=== PATIENT | male | born 1930 | race Caucasian/White ===

== ENCOUNTER 2017-11-15 20:48 | Observation (INO) | payer OTHER ==
--- NOTE | 2017-11-15 21:43 | PDOC ---
History of Present Illness - General History Source: Patient, Family Exam Limitations: No Limitations - History of Present Illness Initial Comments: 11/15/17 23:28 Patient is a 86 year old male with a significant past medical history of Thyroid complication, enlarged prostate who presents to the ED with complaints of dizziness that began just prior to arrival. Patient reports walking at home when he suddenly began to experience slight dizziness. As per patient's daughter , patient called her concerning his dizziness who then called EMS to be brought to the ED for further evaluation. She reports patient was able to walk down his steps to meet EMS outside his home when she arrived. Patient reports experiencing associated symptoms of doubled vision, and jaw pain. As per patient's son, he has been non compliant with his thyroid medication for x3 days. Denies chest pain, Sob. Denies nausea, vomiting. Denies loss of consciousness, head trauma. Denies dysuria, hematuria, constipation, diarrhea. Denies fevers, chills. Denies any other symptoms. Allergies: None Social History: Lives alone. No smoking. No alcohol. No illicit drugs. Surgical History: None PMD: Dr. Dunn, Dr. Esquivel <Avtar Stuart - Last Filed: 11/16/17 00:14> <Annalise Choe - Last Filed: 11/16/17 06:33> - General Chief Complaint: Lightheaded Stated Complaint: DIZZINESS/WEAKNESS Time Seen by Provider: 11/15/17 21:40 Past History <Avtar Stuart - Last Filed: 11/16/17 00:14> - Past Medical History Cancer: Yes (PROSTATE) Thyroid Disease: Yes - Surgical History Appendectomy: Yes - Immunization History Immunization Up to Date: Yes - Suicide/Smoking/Psychosocial Hx Smoking Status: No Smoking History: Never smoked Have you smoked in the past 12 months: No Number of Cigarettes Smoked Daily: 0 Information on smoking cessation initiated: No Hx Alcohol Use: No Drug/Substance Use Hx: No Substance Use Type: None <Annalise Choe - Last Filed: 11/16/17 06:33> - Past Medical History Allergies/Adverse Reactions: Allergies Allergy/AdvReac Type Severity Reaction Status Date / Time No Known Allergies Allergy Verified 11/15/17 21:30 Home Medications: Ambulatory Orders Levothyroxine [Synthroid -] 125 mcg PO DAILY 11/16/17 Review of Systems - Review of Systems Able to Perform ROS?: Yes Comments:: 11/15/17 23:28 GENERAL/CONSTITUTIONAL: No fever or chills. No weakness. HEAD, EYES, EARS, NOSE AND THROAT: +Jaw pain. No change in vision. No ear pain or discharge. No sore throat. CARDIOVASCULAR: No chest pain or shortness of breath. RESPIRATORY: No cough, wheezing, or hemoptysis. GASTROINTESTINAL: No nausea, vomiting, diarrhea or constipation. GENITOURINARY: No dysuria, frequency, or change in urination. MUSCULOSKELETAL: No joint or muscle swelling or pain. No neck or back pain. SKIN: No rash NEUROLOGIC: +Doubled vision. +Dizziness. No headache, vertigo, loss of consciousness, or change in strength/sensation. ENDOCRINE: No increased thirst. No abnormal weight change. HEMATOLOGIC/LYMPHATIC: No anemia, easy bleeding, or history of blood clots. ALLERGIC/IMMUNOLOGIC: No hives or skin allergy. <Avtar Stuart - Last Filed: 11/16/17 00:14> *Physical Exam - Vital Signs Last Vital Signs Temp Pulse Resp BP Pulse Ox 97.9 F 66 18 165/88 97 11/15/17 21:27 11/15/17 21:27 11/15/17 21:27 11/15/17 21:27 11/15/17 21:27 - Physical Exam Comments: 11/15/17 23:28 GENERAL: Awake, alert, and fully oriented, in no acute distress HEAD: No signs of trauma EYES: PERRLA, EOMI, sclera anicteric, conjunctiva clear ENT: Auricles normal inspection, hearing grossly normal, nares patent, oropharynx clear without exudates. Moist mucosa NECK: Normal ROM, supple, no lymphadenopathy, JVD, or masses LUNGS: Breath sounds equal, clear to auscultation bilaterally. No wheezes, and no crackles HEART: Regular rate and rhythm, normal S1 and S2, no murmurs, rubs or gallops ABDOMEN: Soft, nontender, normoactive bowel sounds. No guarding, no rebound. No masses EXTREMITIES: Normal range of motion, no edema. No clubbing or cyanosis. No cords, erythema, or tenderness NEUROLOGICAL: Cranial nerves II through XII grossly intact. Normal speech, normal gait SKIN: Warm, Dry, normal turgor, no rashes or lesions noted. <Avtar Stuart - Last Filed: 11/16/17 00:14> - Vital Signs Last Vital Signs Temp Pulse Resp BP Pulse Ox 97.9 F 66 18 165/88 97 11/15/17 21:27 11/15/17 21:27 11/15/17 21:27 11/15/17 21:27 11/15/17 21:27 <Annalise Choe - Last Filed: 11/16/17 06:33> Heart Score/ECG Review - ECG Intrepretation Comment:: 11/16/17 00:14 Compleeted @22:52:26 Sinus bradycardia with 1st degree AV block Right bundle branch block Abnormal ECG Vent. rate 52 bpm IN interval 216 ms QRS duration 146 ms <Avtar Stuart - Last Filed: 11/16/17 00:14> ED Treatment Course - LABORATORY CBC & Chemistry Diagram: 11/15/17 23:00 11/15/17 23:00 - ADDITIONAL ORDERS Additional order review: 11/15/17 23:00 RBC 4.69 MCV 89.1 MCHC 34.5 RDW 14.0 MPV 8.9 Neutrophils % 58.3 D Lymphocytes % 21.6 D Monocytes % 10.3 H Eosinophils % 8.7 H D Basophils % 1.1 <Avtar Stuart - Last Filed: 11/16/17 00:14> - LABORATORY CBC & Chemistry Diagram: 11/15/17 23:00 11/15/17 23:00 <Annalise Choe - Last Filed: 11/16/17 06:33> Medical Decision Making - Medical Decision Making 11/16/17 06:25 Pt comes with double vision and dizziness. He has not been taking his thyroid meds x 3 days. TSH is elevated at 10. 11/16/17 06:26 Pt has normal labs otherwise. Pt also has old changes on his head CT scan. Pt will be admitted to [facility] for neuro consult and opthalmology consult and repeat MRI, as needed. <Annalise Choe - Last Filed: 11/16/17 06:33> *DC/Admit/Observation/Transfer - Attestations Scribe Attestion: 11/15/17 23:28 Documentation prepared by Avtar Narciso, acting as claim review medical director for Annalise Choe MD/DO. <Avtar Stuart - Last Filed: 11/16/17 00:14> - Discharge Dispostion Decision to Admit order: Yes <Annalise Choe - Last Filed: 11/16/17 06:33> Diagnosis at time of Disposition: Diplopia, Dizziness, Thyroid disease - Discharge Dispostion Condition at time of disposition: Guarded
--- NOTE | 2017-11-15 22:50 | CON.NEURO ---
Consult Consult Specialty:: Juan Referred by:: ER Reason for Consultation:: Diplopia - History of Present Illness History of Present Illness: 86 years old man with Hx CAD OA Prostate Ca Presented from home with his daughter calling EMS with diplopia and dizziness No recent travel or head trauma Patient came in to the ER NIHSS was zero I saw the patient with similar complaint in 11/2016 MRI of the brain with no evidence of acute path Patient did not follow up after Patient denies any other cranial nerve finding or complaints Patient claims it is binocular and distant - History Source History Provided By: Patient, Medical Record Limitations to Obtaining History: No Limitations - 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 Musculoskeletal: Yes: Chronic low back pain - Alcohol/Substance Use Hx Alcohol Use: No - Smoking History Smoking history: Never smoked Have you smoked in the past 12 months: No Aproximately how many cigarettes per day: 0 - Social History Usual Living Arrangement: With Child ADL: Independent Place of : Other ([place]) History of Recent Travel: No Home Medications - Allergies Allergies/Adverse Reactions: Allergies Allergy/AdvReac Type Severity Reaction Status Date / Time No Known Allergies Allergy Verified 11/15/17 21:30 - Home Medications Home Medications: Ambulatory Orders Levothyroxine [Synthroid -] 125 mcg PO DAILY 11/16/17 Family Disease History - Family Disease History Family History: Unable to Obtain Review of Systems - Review of Systems Constitutional: reports: No Symptoms Eyes: reports: No Symptoms Neurological: reports: Dizziness, Headache, Parasthesia, Unsteady Gait Physical Exam-Neuro Vital Signs: Vital Signs Temperature 97.9 F 11/15/17 21:27 Pulse Rate 66 11/15/17 21:27 Respiratory Rate 18 11/15/17 21:27 Blood Pressure 165/88 11/15/17 21:27 O2 Sat by Pulse Oximetry (%) 97 11/15/17 21:27 Constitutional: Yes: Well Nourished Neck: Yes: WNL - Neuro Exam Level Of Consciousness: Yes: Oriented to Person, Oriented to Place, Oriented to Time Eyes: Yes: PERRLA, Other (Lateral diplopia ) Speech: WNL Dominant Hand: Right Cranial Nerves II-XII Intact: Yes Gag: Present DTR's: 1+ Left Bicep, 1+ Right Bicep, 1+ Left Brachioradialis, 1+ Right Brachioradialis Response to light touch: Normal Response to pain prick: Normal Response to temperature: Normal Response to vibration: Normal Motor Strength: 3/5: Left Arm, Right Arm, Left Leg, Right Leg Gait: Deferred Imaging - Results Cat Scan: Image Reviewed Ultrasound: Image Reviewed Problem List - Problems (1) Diplopia Assessment/Plan: Patient had symptoms of diplopia before NIHSS 0 Not a candidate for IV TPA 1. Neuro checks 2. Tele monitor 3. MRI brain 4. C Duplex 5. Am lipid 6. ASA 81 mg po qd 7. Acetylcholine R AB ?? MYasthenia as the diplopia fluctuates 8. Lymew titer Code(s): H53.2 - DIPLOPIA
[2017-11-15 23:22] LABS: BASO % 1.1 % (0-2.0); EOS % 8.7 % (0-4.5); HEMATOCRIT 41.8 % (35.4-49); HEMOGLOBIN 14.4 GM/dL (11.7-16.9); LYMPH % 21.6 % (8-40); MCH 30.8 pg (25.7-33.7); MCHC 34.5 g/dl (32.0-35.9); MEAN CELL VOLUME 89.1 fl (80-96); MEAN PLT VOLUME 8.9 fl (7.5-11.1); MONO % 10.3 % (3.8-10.2); NEUT % 58.3 % (42.8-82.8); PLATELET COUNT 195 K/MM3 (134-434); RBC 4.69 M/mm3 (4.00-5.60); WHITE BLOOD COUNT 5.9 K/mm3 (4.0-10.0)
[2017-11-16 00:02] LABS: INR 1.01 (0.82-1.09); PROTHROMBIN TIME (PATIENT) 11.4 SEC (9.7-13.0)
[2017-11-16 00:03] LABS: ALBUMIN 3.7 g/dl (3.4-5.0); ALK PHOS 63 U/L (45-117); ANION GAP 10 (8-16); BILIRUBIN,TOTAL 0.7 mg/dL (0.2-1.0); BLOOD UREA NITROGEN 25 mg/dL (7-18); CHLORIDE 109 mmol/L (98-107); CO2 24 mmol/L (21-32); CREATININE 1.1 mg/dL (0.7-1.3); GLUCOSE,RANDOM 93 mg/dL (74-106); SGOT/AST 21 U/L (15-37); SGPT/ALT 17 U/L (12-78); SODIUM 143 mmol/L (136-145)
--- NOTE | 2017-11-16 01:31 | HP ---
CHIEF COMPLAINT: Double vision PCP: Garrett Dunn HISTORY OF PRESENT ILLNESS: 86M with hypothyroidism, and prostate Ca s/p seeding presents to the ED due to double vision and dizziness. He states it happened all of a sudden and his daughter called EMS. Patient also started to experience diplopia. Patient was able to walk the stairs to meet EMS per ED. Denies nausea vomiting fevers chills chest pain shortness of breath Denies urinary or GI symptoms. Per ER records son states father has not been compliant with synthroid for at least 3 days but patient states its one been 1 or 2 days. Patient states he currently feels better. Per neurology note this has happened to the patient before and per EMR patient has had multiple MRIs of Brain in the past without any significant findings. Patient is ambulating in the ED. Allergies: None Surgical History: None PMD: Dr. Dunn Neurologist: Dr. Esquivel ER course was notable for: (1)Labs (2)Neurology consult (3)Head CT Recent Travel: Denies PAST MEDICAL HISTORY: Hypothyroidism prostate Ca PAST SURGICAL HISTORY:prostate seeding, appendectomy in 1940s, hip surgery Social History: Smoking:Denies Alcohol:Denies Drugs: Denies Lives Alone Allergies No Known Allergies Allergy (Verified 11/15/17 21:30) HOME MEDICATIONS: Home Medications Medication Instructions Recorded Ciprofloxacin [Cipro (Restricted 250 mg PO BID 03/14/16 To Id)] Naproxen [Naprosyn -] 500 mg PO BID #60 tablet 03/15/16 REVIEW OF SYSTEMS CONSTITUTIONAL: Absent: fever, chills, diaphoresis, generalized weakness, malaise, loss of appetite, weight change HEENT: Absent: rhinorrhea, nasal congestion, throat pain, throat swelling, difficulty swallowing, mouth swelling, ear pain, eye pain, Present: Diplopia CARDIOVASCULAR: Absent: chest pain, syncope, palpitations, irregular heart rate, lightheadedness , peripheral edema RESPIRATORY: Absent: cough, shortness of breath, dyspnea with exertion, orthopnea, wheezing, stridor, hemoptysis GASTROINTESTINAL: Absent: abdominal pain, abdominal distension, nausea, vomiting, diarrhea, constipation, melena, hematochezia GENITOURINARY: Absent: dysuria, frequency, urgency, hesitancy, hematuria, flank pain, genital pain MUSCULOSKELETAL: Absent: myalgia, arthralgia, joint swelling, back pain, neck pain SKIN: Absent: rash, itching, pallor HEMATOLOGIC/IMMUNOLOGIC: Absent: easy bleeding, easy bruising, lymphadenopathy, frequent infections ENDOCRINE: Absent: unexplained weight gain, unexplained weight loss, heat intolerance, cold intolerance NEUROLOGIC: Absent: headache, focal weakness or paresthesias, unsteady gait, seizure, mental status changes, bladder or bowel incontinence Present: dizziness PSYCHIATRIC: Absent: anxiety, depression, suicidal or homicidal ideation, hallucinations. PHYSICAL EXAMINATION Vital Signs - 24 hr 11/15/17 21:27 Temperature 97.9 F Pulse Rate 66 Respiratory 18 Rate Blood Pressure 132/82 O2 Sat by Pulse 97 Oximetry (%) GENERAL: Awake, alert, and fully oriented, in no acute distress. HEAD: Normal with no signs of trauma. EYES: Pupils equal, round and reactive to light, extraocular movements intact, sclera anicteric, conjunctiva clear. No lid lag. EARS, NOSE, THROAT: Moist mucous membranes LUNGS: Breath sounds equal, clear to auscultation bilaterally. No wheezes, and no crackles. No accessory muscle use. HEART: Regular rate and rhythm, normal S1 and S2 without murmur, rub or gallop. ABDOMEN: Soft, nontender, not distended, normoactive bowel sounds, no guarding, no rebound, no masses. No hepatomegaly or splenomegaly. MUSCULOSKELETAL: Normal range of motion at all joints. No CVA tenderness. Global Muscle Strength 5/5 at all joints UPPER EXTREMITIES: warm, well-perfused. No cyanosis. No clubbing. No peripheral edema. LOWER EXTREMITIES: warm, well-perfused. No calf tenderness. No peripheral edema. NEUROLOGICAL: Cranial nerves II-XII intact. Normal speech. PSYCHIATRIC: Cooperative. Good eye contact. SKIN: Warm, dry, normal turgor, no rashes or lesions noted, normal capillary refill. Laboratory Results - last 24 hr 11/15/17 11/15/17 11/15/17 23:00 23:00 23:00 WBC 5.9 D RBC 4.69 Hgb 14.4 Hct 41.8 MCV 89.1 MCH 30.8 MCHC 34.5 RDW 14.0 Plt Count 195 MPV 8.9 Neutrophils % 58.3 D Lymphocytes % 21.6 D Monocytes % 10.3 H Eosinophils % 8.7 H D Basophils % 1.1 PT with INR 11.40 INR 1.01 PTT (Actin FS) 28.7 Sodium Potassium Chloride Carbon Dioxide Anion Gap BUN Creatinine Creat Clearance w eGFR Random Glucose Calcium Total Bilirubin AST ALT Alkaline Phosphatase Total Protein Albumin TSH Free T4 Resin T3 Uptake 11/15/17 11/15/17 23:00 23:00 WBC RBC Hgb Hct MCV MCH MCHC RDW Plt Count MPV Neutrophils % Lymphocytes % Monocytes % Eosinophils % Basophils % PT with INR INR PTT (Actin FS) Sodium 143 Potassium 4.0 Chloride 109 H Carbon Dioxide 24 Anion Gap 10 BUN 25 H D Creatinine 1.1 D Creat Clearance w eGFR > 60 Random Glucose 93 D Calcium 9.0 Total Bilirubin 0.7 D AST 21 D ALT 17 D Alkaline Phosphatase 63 D Total Protein 7.0 Albumin 3.7 TSH 10.00 H Free T4 0.93 Resin T3 Uptake 30.3 L EKG: Right bundle branch block unchanged from prior EKG ASSESSMENT/PLAN: 86M with history of hypothyroidism presents to the ED with diplopia and dizziness which has since resolved. Diplopia with dizziness: Improved Rule out Neurocardiogenic causes Place in observation neurology consulted by ED MRI Brain carotid duplex Lipid panel ASA Lyme titer Per neurology Monitor BP to make sure patient is not having hypertensive symptoms on arrival BP elevated to 168/85 on my physical exam BP was 132/82 Hypothyroidism: TSH 10 likely due to non compliance restart synthroid 125mcg qam endocrinology consult prostate Ca: s/p seeding f/u as outpatient FEN: NS @ 50ml/hr no electrolyte issues regular diet PPx: SCDs/early ambulation no GI Px indicated no PT consult needed patient is ambulatory Case discussed with Dr. Lange Visit type - Emergency Visit Emergency Visit: Yes ED Registration Date: 11/16/17 Care time: The patient presented to the Emergency Department on the above date and was hospitalized for further evaluation of their emergent condition. - New Patient This patient is new to me today: Yes Date on this admission: 11/16/17 - Critical Care Critical Care patient: No Hospitalist Screening - Colonoscopy Questionnaire Colonoscopy Questionnaire: Colonoscopy Questionnaire - Patient: 50 - 75 years old and never had a screening colonoscopy: No History of colon or rectal polyps, or CA: No History of IBD, Crohn's disease or UC: No History of abdominal radiation therapy as a child: No - Relative: 1 with colon or rectal CA, or polyps at age 60 or younger: No Colon or rectal CA diagnosed at age 45 or younger: No Multiple relatives with colon or rectal CA: No - Outcome: Screening Result: Negative Screen
[2017-11-16] MEDS ORDERED: SODIUM CHLORIDE 1,000 ML IV SCH (02:30)
--- NOTE | 2017-11-16 04:15 | PN ---
Teaching Attending Note Name of Resident: Michoacano Dunn ATTENDING PHYSICIAN STATEMENT I saw and evaluated the patient. I reviewed the resident's note and discussed the case with the resident. I agree with the resident's findings and plan as documented. SUBJECTIVE: OBJECTIVE: ASSESSMENT AND PLAN: 86M with history of hypothyroidism presents to the ED with diplopia and dizziness which has since resolved. Diplopia with dizziness: Improved Rule out Neurocardiogenic causes Place in observation neurology consulted by ED MRI Brain carotid duplex Lipid panel ASA Lyme titer Per neurology Monitor BP to make sure patient is not having hypertensive symptoms on arrival BP elevated to 168/85 on my physical exam BP was 132/82 Hypothyroidism: TSH 10 likely due to non compliance restart synthroid 125mcg qam endocrinology evaluation
[2017-11-16 05:04] VITALS: BMI 29.0
[2017-11-16] MEDS: LEVOTHYROXINE NA 125 MCG TABLET (FP) PO SCH (06:51)
--- NOTE | 2017-11-16 07:58 | PN ---
Progress Note, Physician Chief Complaint: dizziness diplopia History of Present Illness: NAD dizziness resolved Diplopia persists seen by Neurology CT head unremarkable MRI pending - Current Medication List Current Medications: Active Medications Aspirin (Ecotrin -) 81 mg PO DAILY [facility] Sodium Chloride (Normal Saline -) 1,000 mls @ 50 mls/hr IV ASDIR MAREN Stop: 11/17/17 02:19 Last Admin: 11/16/17 03:28 Dose: 50 mls/hr Levothyroxine Sodium (Synthroid -) 125 mcg PO DAILY@0700 [facility] Last Admin: 11/16/17 06:51 Dose: 125 mcg - Objective Vital Signs: Vital Signs Temperature 98.1 F 11/16/17 05:11 Pulse Rate 54 L 11/16/17 05:11 Respiratory Rate 20 11/16/17 05:11 Blood Pressure 129/63 11/16/17 05:11 O2 Sat by Pulse Oximetry (%) 96 11/16/17 05:10 Constitutional: Yes: Well Nourished, No Distress, Calm Cardiovascular: Yes: Regular Rate and Rhythm Respiratory: Yes: Regular Gastrointestinal: Yes: Normal Bowel Sounds, Soft Musculoskeletal: Yes: WNL Extremities: Yes: WNL Edema: No Peripheral Pulses WNL: Yes Neurological: Yes: Alert, Oriented Psychiatric: Yes: Alert, Oriented Labs: CBC, BMP 11/15/17 23:00 11/15/17 23:00 INR, PTT INR 1.01 (0.82-1.09) 11/15/17 23:00 Problem List - Problems (1) Diplopia Assessment/Plan: -seen by neurology -MRI brain pending Code(s): H53.2 - DIPLOPIA (2) Dizziness Assessment/Plan: -cardiology consult -carotid U/S -echo on cardiology discretion -lyme titer pending Code(s): R42 - DIZZINESS AND GIDDINESS (3) Thyroid disease Assessment/Plan: -due to non compliance -levothyroxine 125 mcg restarted Code(s): E07.9 - DISORDER OF THYROID, UNSPECIFIED Assessment/Plan see problem list DVT prophylaxis
--- NOTE | 2017-11-16 09:20 | EKG ---
Test Reason : Blood Pressure : / mmHG Vent. Rate : 052 BPM Atrial Rate : 052 BPM P-R Int : 216 ms QRS Dur : 146 ms QT Int : 412 ms P-R-T Axes : 045 048 046 degrees QTc Int : 383 ms SINUS BRADYCARDIA WITH 1ST DEGREE A-V BLOCK RIGHT BUNDLE BRANCH BLOCK ABNORMAL ECG WHEN COMPARED WITH ECG OF 17-APR-2013 20:43, VENT. RATE HAS DECREASED BY 55 BPM RIGHT BUNDLE BRANCH BLOCK HAS REPLACED INCOMPLETE RIGHT BUNDLE BRANCH BLOCK T WAVE INVERSION NO LONGER EVIDENT IN ANTERIOR LEADS T WAVE AMPLITUDE HAS DECREASED IN LATERAL LEADS Confirmed by EMILEE ROMERO MD ([id number]) on 11/16/2017 9:20:10 AM Referred By: Confirmed By:EMILEE ROMERO MD
[2017-11-16] MEDS: HEPARIN NA (PORCINE) 5,000 UNITS/ML 1ML VIAL SQ SCH ×3 (10:48→22:26)
[2017-11-16] MEDS: ASPIRIN COATED 81 MG TABLET.EC PO SCH ×3 (10:48→18:28)
--- NOTE | 2017-11-16 16:19 | CONSULT ---
Consult Consult Specialty:: endocrine Referred by:: jermain garrison NP Reason for Consultation:: hypothyroidism - History of Present Illness Chief Complaint: weak,dizzy History of Present Illness: 6M with hypothyroidism, and prostate Ca s/p seeding presents to the ED due to double vision and dizziness. He had sudden onset of weakness,and dizzyness,then daughter called EMS. Patient also started to experience diplopia. Patient was able to walk the stairs to meet EMS per ED. Denies nausea vomiting fevers chills chest pain shortness of breath Denies urinary or GI symptoms. ? 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 Musculoskeletal: Yes: Chronic low back pain - Alcohol/Substance Use Hx Alcohol Use: No - Smoking History Smoking history: Never smoked Have you smoked in the past 12 months: No Aproximately how many cigarettes per day: 0 - Social History Usual Living Arrangement: With Child ADL: Independent History of Recent Travel: No Home Medications - Allergies Allergies/Adverse Reactions: Allergies Allergy/AdvReac Type Severity Reaction Status Date / Time No Known Allergies Allergy Verified 11/15/17 21:30 - Home Medications Home Medications: Ambulatory Orders Levothyroxine [Synthroid -] 125 mcg PO DAILY 11/16/17 Review of Systems - Review of Systems Constitutional: reports: Lethargy, Weakness Eyes: reports: Double Vision HENT: reports: No Symptoms Neck: reports: No Symptoms Respiratory: reports: No Symptoms Gastrointestinal: reports: No Symptoms Genitourinary: reports: No Symptoms Breasts: reports: No Symptoms Reported Musculoskeletal: reports: Muscle Cramps, Muscle Weakness Integumentary: reports: No Symptoms Neurological: reports: No Symptoms, Weakness Endocrine: reports: No Symptoms Hematology/Lymphatic: reports: No Symptoms Physical Exam Vital Signs: Vital Signs Temperature 97.4 F L 11/16/17 14:00 Pulse Rate 60 11/16/17 14:00 Respiratory Rate 18 11/16/17 14:00 Blood Pressure 123/63 11/16/17 14:00 O2 Sat by Pulse Oximetry (%) 96 11/16/17 05:10 Constitutional: Yes: Calm Eyes: Yes: EOM Intact HENT: Yes: Normocephalic Neck: Yes: Trachea Midline Cardiovascular: Yes: Regular Rate and Rhythm Respiratory: Yes: CTA Bilaterally Gastrointestinal: Yes: Normal Bowel Sounds ...Rectal Exam: Yes: Deferred Renal/: Yes: WNL Breast(s): Yes: WNL Musculoskeletal: Yes: WNL Extremities: Yes: WNL Integumentary: Yes: WNL Neurological: Yes: Alert, Oriented Labs: CBC, BMP 11/15/17 23:00 11/15/17 23:00 Problem List - Problems (1) Hypothyroidism Code(s): E03.9 - HYPOTHYROIDISM, UNSPECIFIED Qualifiers: 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 Qualified Code(s): E03.8 - Other specified hypothyroidism; E06.3 - Autoimmune thyroiditis; E06.3 - Autoimmune thyroiditis; E06.3 - Autoimmune thyroiditis (2) Diplopia Code(s): H53.2 - DIPLOPIA (3) Dizziness Code(s): R42 - DIZZINESS AND GIDDINESS Assessment/Plan Current Active Problems Diplopia (Acute) Diplopia (Acute) Dizziness (Acute) Thyroid disease (Acute) hypothyroidism amada thyroiditis Abnormal Lab Results 11/15/17 11/15/17 11/15/17 23:00 23:00 23:00 Monocytes % 10.3 H Eosinophils % 8.7 H D Chloride 109 H BUN 25 H D TSH 10.00 H Resin T3 Uptake 30.3 L Laboratory Results - last 24 hr 11/15/17 11/15/17 11/15/17 23:00 23:00 23:00 WBC 5.9 D RBC 4.69 Hgb 14.4 Hct 41.8 MCV 89.1 MCH 30.8 MCHC 34.5 RDW 14.0 Plt Count 195 MPV 8.9 Neutrophils % 58.3 D Lymphocytes % 21.6 D Monocytes % 10.3 H Eosinophils % 8.7 H D Basophils % 1.1 ESR PT with INR 11.40 INR 1.01 PTT (Actin FS) 28.7 Sodium Potassium Chloride Carbon Dioxide Anion Gap BUN Creatinine Creat Clearance w eGFR Random Glucose Calcium Total Bilirubin AST ALT Alkaline Phosphatase Total Protein Albumin TSH Free T4 Resin T3 Uptake 11/15/17 11/15/17 11/15/17 23:00 23:00 23:00 WBC RBC Hgb Hct MCV MCH MCHC RDW Plt Count MPV Neutrophils % Lymphocytes % Monocytes % Eosinophils % Basophils % ESR 7 PT with INR INR PTT (Actin FS) Sodium 143 Potassium 4.0 Chloride 109 H Carbon Dioxide 24 Anion Gap 10 BUN 25 H D Creatinine 1.1 D Creat Clearance w eGFR > 60 Random Glucose 93 D Calcium 9.0 Total Bilirubin 0.7 D AST 21 D ALT 17 D Alkaline Phosphatase 63 D Total Protein 7.0 Albumin 3.7 TSH 10.00 H Free T4 0.93 Resin T3 Uptake 30.3 L plan: synthroid 125mcg daily give dose alone consistant repeat tsh and free t4 in 2 weeks since free t4 normal high tsh likely dose compliance
--- NOTE | 2017-11-16 17:20 | CON.CARD ---
Consult Consult Specialty:: Cardiology Referred by:: Hospitalist Medicine Reason for Consultation:: Dizziness, diplopia - History of Present Illness Chief Complaint: Diplopia History of Present Illness: 86M with history of hypothyroidism presents to the ED with diplopia and dizziness which has since resolved. Patient denies chest pain, current near or true syncope, palpitations, orthopnea, PND or LE edema. Dr. Martinez of neurology saw patient for same sxs last 11/2016. - Past Medical History [employer]: Yes: Dementia Musculoskeletal: Yes: Chronic low back pain - Alcohol/Substance Use Hx Alcohol Use: No - Smoking History Smoking history: Never smoked Have you smoked in the past 12 months: No Aproximately how many cigarettes per day: 0 - Social History Usual Living Arrangement: With Child ADL: Independent History of Recent Travel: No Home Medications - Allergies Allergies/Adverse Reactions: Allergies Allergy/AdvReac Type Severity Reaction Status Date / Time No Known Allergies Allergy Verified 11/15/17 21:30 - Home Medications Home Medications: Ambulatory Orders Levothyroxine [Synthroid -] 125 mcg PO DAILY 11/16/17 Review of Systems - Review of Systems Eyes: reports: Double Vision Neurological: reports: Dizziness Vital Signs: Vital Signs Temperature 97.4 F L 11/16/17 14:00 Pulse Rate 60 11/16/17 14:00 Respiratory Rate 18 11/16/17 14:00 Blood Pressure 123/63 11/16/17 14:00 O2 Sat by Pulse Oximetry (%) 96 11/16/17 13:00 Constitutional: Yes: No Distress, Calm, Thin Neck: Yes: Supple Respiratory: Yes: Regular, CTA Bilaterally Gastrointestinal: Yes: Normal Bowel Sounds, Soft Cardiovascular: Yes: Regular Rate and Rhythm JVD: No Carotid Bruit: No Heart Sounds: Yes: S1, S2 Edema: No - Other Data Labs, Other Data: CBC, BMP 11/15/17 23:00 11/15/17 23:00 INR, PTT INR 1.01 (0.82-1.09) 11/15/17 23:00 Imaging - Results Ultrasound: Report Reviewed (Carotid U/S-No stenosis) MRI: Pending Problem List - Problems (1) Diplopia Code(s): H53.2 - DIPLOPIA (2) Dizziness Code(s): R42 - DIZZINESS AND GIDDINESS (3) Hypothyroidism Code(s): E03.9 - HYPOTHYROIDISM, UNSPECIFIED Qualifiers: 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 Diplopia r/o stroke 2. Dizziness since resolved 3. Hypothyroidism 4. RBBB P:1. F/u Brain MRI results 2. Echo to assess ventricular and valve fxn 3. Holter monitor r/o arrhythmia 4. ASA 81 qd, DVT prophylaxis, neuro f/u 5. Thank you for consultative opportunity
[2017-11-16] MEDS: metFORMIN HCL 500 MG TABLET (FP) PO SCH (20:52)
[2017-11-16] MEDS ORDERED: SODIUM CHLORIDE NASAL SPRAY 44 ML BOTTLE NS PRN (20:59)
[2017-11-16 22:07] LABS: URINE APPEARANCE CLEAR; URINE BILIRUBIN NEGATIVE (<2.0 mg/dL); URINE COLOR LTYELLOW; URINE GLUCOSE (UA) NEGATIVE (NEGATIVE); URINE KETONE NEGATIVE (NEGATIVE); URINE LEUK ESTERASE NEGATIVE (NEGATIVE); URINE NITRITE NEGATIVE (NEGATIVE); URINE PROTEIN NEGATIVE (NEGATIVE); URINE UROBILINOGEN NEGATIVE mg/dL (0.2-1.0)
[2017-11-17] MEDS ORDERED: PT OWN MED DRAWER 7, Y5N ONE ×2 (05:33→09:36)
[2017-11-17] MEDS: LEVOTHYROXINE NA 125 MCG TABLET (FP) PO SCH (06:21)
[2017-11-17] MEDS: metFORMIN HCL 500 MG TABLET (FP) PO SCH (06:21)
--- NOTE | 2017-11-17 09:00 | PN ---
Progress Note, Physician Chief Complaint: dizziness diplopia History of Present Illness: NAD dizziness resolved Diplopia persists seen by Neurology CT head unremarkable MRI unremarkable except parasinus disease and polyp intruding in nasopharyngeal airway - Current Medication List Current Medications: Active Medications Aspirin (Ecotrin -) 81 mg PO DAILY [facility] Last Admin: 11/16/17 18:28 Dose: 81 mg Heparin Sodium (Porcine) (Heparin -) 5,000 unit SQ BID [facility] Last Admin: 11/16/17 22:26 Dose: 5,000 unit Levothyroxine Sodium (Synthroid -) 125 mcg PO DAILY@0700 [facility] Last Admin: 11/17/17 06:21 Dose: 125 mcg Metformin HCl (Glucophage -) 500 mg PO ACBK [facility] Last Admin: 11/17/17 06:21 Dose: Not Given Sodium Chloride ([place]al [place] -) 2 spray NS TID PRN PRN Reason: NASAL CONGESTION Last Admin: 11/16/17 22:25 Dose: 2 spray - Objective Vital Signs: Vital Signs Temperature 97.7 F 11/17/17 06:00 Pulse Rate 58 L 11/17/17 06:00 Respiratory Rate 20 11/17/17 06:00 Blood Pressure 126/64 11/17/17 06:00 O2 Sat by Pulse Oximetry (%) 96 11/17/17 05:00 Constitutional: Yes: Well Nourished, No Distress, Calm Eyes: Yes: Diplopia Cardiovascular: Yes: Regular Rate and Rhythm Respiratory: Yes: Regular Gastrointestinal: Yes: Normal Bowel Sounds, Soft Musculoskeletal: Yes: WNL Extremities: Yes: WNL Edema: No Peripheral Pulses WNL: Yes Neurological: Yes: Alert, Oriented Psychiatric: Yes: Alert, Oriented Labs: CBC, BMP 11/15/17 23:00 11/15/17 23:00 INR, PTT INR 1.01 (0.82-1.09) 11/15/17 23:00 Problem List - Problems (1) Diplopia Assessment/Plan: -seen by neurology -MRI brain reviewed -Seen by Cardiology -Echo and holter ordered Code(s): H53.2 - DIPLOPIA (2) Dizziness Assessment/Plan: -resolved -cardiology consult -carotid U/S -echo and holter monitor -lyme titer pending -Lipid profile pending Code(s): R42 - DIZZINESS AND GIDDINESS (3) Thyroid disease Assessment/Plan: -due to non compliance -levothyroxine 125 mcg restarted -endocrinology consult appreciated -repeat TSH/FT4 in 2 weeks outpatient Code(s): E07.9 - DISORDER OF THYROID, UNSPECIFIED Assessment/Plan see problem list DVT prophylaxis Avoid oral hypoglycemics in light of borderline Cr and advanced age, Last A1c was 5.0, repeat A1C
[2017-11-17 09:24] LABS: CHOLESTEROL 128 mg/dL (50-200); HDL CHOLESTEROL 47 mg/dL (40-60); TRIGLYCERIDES 116 mg/dL (35-160)
[2017-11-17] MEDS: ASPIRIN COATED 81 MG TABLET.EC PO SCH (09:41)
[2017-11-17] MEDS: HEPARIN NA (PORCINE) 5,000 UNITS/ML 1ML VIAL SQ SCH ×2 (09:41→22:05)
[2017-11-17] MEDS: FLUTICASONE PROP 0.05% 16 GM NASAL SPRAY NS SCH (12:00)
--- NOTE | 2017-11-17 14:16 | PN ---
Progress Note, Physician History of Present Illness: Diplopia persists and dizziness has resolved. Brain MRI negative for stroke. - Current Medication List Current Medications: Active Medications Aspirin (Ecotrin -) 81 mg PO DAILY [facility] Last Admin: 11/17/17 09:41 Dose: 81 mg Fluticasone Propionate (Flonase -) 1 spray NS DAILY [facility] Last Admin: 11/17/17 12:00 Dose: 1 spray Heparin Sodium (Porcine) (Heparin -) 5,000 unit SQ BID [facility] Last Admin: 11/17/17 09:41 Dose: 5,000 unit Levothyroxine Sodium (Synthroid -) 125 mcg PO DAILY@0700 [facility] Last Admin: 11/17/17 06:21 Dose: 125 mcg - Objective Vital Signs: Vital Signs Temperature 97.3 F L 11/17/17 13:45 Pulse Rate 58 L 11/17/17 13:45 Respiratory Rate 18 11/17/17 13:45 Blood Pressure 127/67 11/17/17 13:45 O2 Sat by Pulse Oximetry (%) 96 11/17/17 05:00 Constitutional: Yes: No Distress, Calm Neck: Yes: Supple Cardiovascular: Yes: Regular Rate and Rhythm Respiratory: Yes: Regular, CTA Bilaterally Gastrointestinal: Yes: Normal Bowel Sounds, Soft Edema: No Labs: CBC, BMP 11/15/17 23:00 11/15/17 23:00 INR, PTT INR 1.01 (0.82-1.09) 11/15/17 23:00 Problem List - Problems (1) Diplopia Code(s): H53.2 - DIPLOPIA (2) Dizziness Code(s): R42 - DIZZINESS AND GIDDINESS (3) Hypothyroidism Code(s): E03.9 - HYPOTHYROIDISM, UNSPECIFIED Qualifiers: 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 Diplopia ruled out for stroke 2. Dizziness since resolved 3. Hypothyroidism 4. RBBB P: 1. Echo to assess ventricular and valve fxn 2. Holter monitor r/o arrhythmia 3. ASA 81 qd, DVT prophylaxis, neuro f/u
[2017-11-18] MEDS: LEVOTHYROXINE NA 125 MCG TABLET (FP) PO SCH (06:03)
--- NOTE | 2017-11-18 09:06 | PN ---
Progress Note, Physician History of Present Illness: better now - Current Medication List Current Medications: Active Medications Aspirin (Ecotrin -) 81 mg PO DAILY [facility] Last Admin: 11/17/17 09:41 Dose: 81 mg Fluticasone Propionate (Flonase -) 1 spray NS DAILY [facility] Last Admin: 11/17/17 12:00 Dose: 1 spray Heparin Sodium (Porcine) (Heparin -) 5,000 unit SQ BID [facility] Last Admin: 11/17/17 22:05 Dose: Not Given Levothyroxine Sodium (Synthroid -) 125 mcg PO DAILY@0700 [facility] Last Admin: 11/18/17 06:03 Dose: 125 mcg - Objective Vital Signs: Vital Signs Temperature 98.1 F 11/18/17 06:00 Pulse Rate 52 L 11/18/17 06:00 Respiratory Rate 20 11/18/17 06:00 Blood Pressure 127/65 11/18/17 06:00 O2 Sat by Pulse Oximetry (%) 96 11/17/17 05:00 Cardiovascular: Yes: Regular Rate and Rhythm Respiratory: Yes: Regular, CTA Bilaterally Gastrointestinal: Yes: Normal Bowel Sounds, Soft Neurological: Yes: Alert, Oriented. No: Confusion, Pre-Existing Deficit Labs: CBC, BMP 11/15/17 23:00 11/15/17 23:00 INR, PTT INR 1.01 (0.82-1.09) 11/15/17 23:00 Assessment/Plan - Problems (1) Diplopia Assessment/Plan: -seen by neurology -now resolved -MRI brain reviewed-nad -Seen by Cardiology -Echo and holter ordered -may have been to 6th nerve palsy Code(s): H53.2 - DIPLOPIA (2) Dizziness Assessment/Plan: -resolved -cardiology consult -carotid U/S -echo and holter monitor -lyme titer pending -Lipid profile pending Code(s): R42 - DIZZINESS AND GIDDINESS (3) Thyroid disease Assessment/Plan: -due to non compliance -levothyroxine 125 mcg restarted -endocrinology consult appreciated -repeat TSH/FT4 in 2 weeks outpatient Code(s): E07.9 - DISORDER OF THYROID, UNSPECIFIED
[2017-11-18] MEDS ORDERED: PT OWN MED DRAWER 7, Y5N ONE (09:10)
[2017-11-18] MEDS: HEPARIN NA (PORCINE) 5,000 UNITS/ML 1ML VIAL SQ SCH ×2 (09:19→22:13)
[2017-11-18] MEDS: ASPIRIN COATED 81 MG TABLET.EC PO SCH (09:19)
[2017-11-18] MEDS: FLUTICASONE PROP 0.05% 16 GM NASAL SPRAY NS SCH (09:20)
--- NOTE | 2017-11-18 10:17 | PN ---
Progress Note, Physician History of Present Illness: Diplopia and dizziness has both resolved. Brain MRI negative for stroke. - Current Medication List Current Medications: Active Medications Aspirin (Ecotrin -) 81 mg PO DAILY [facility] Last Admin: 11/18/17 09:19 Dose: 81 mg Fluticasone Propionate (Flonase -) 1 spray NS DAILY [facility] Last Admin: 11/18/17 09:20 Dose: 1 spray Heparin Sodium (Porcine) (Heparin -) 5,000 unit SQ BID [facility] Last Admin: 11/18/17 09:19 Dose: 5,000 unit Levothyroxine Sodium (Synthroid -) 125 mcg PO DAILY@0700 [facility] Last Admin: 11/18/17 06:03 Dose: 125 mcg - Objective Vital Signs: Vital Signs Temperature 98.1 F 11/18/17 06:00 Pulse Rate 52 L 11/18/17 06:00 Respiratory Rate 20 11/18/17 06:00 Blood Pressure 127/65 11/18/17 06:00 O2 Sat by Pulse Oximetry (%) 96 11/17/17 05:00 Constitutional: Yes: No Distress, Calm, Thin Neck: Yes: Supple Cardiovascular: Yes: Regular Rate and Rhythm Respiratory: Yes: Regular, CTA Bilaterally Gastrointestinal: Yes: Normal Bowel Sounds, Soft Edema: No Labs: CBC, BMP 11/15/17 23:00 11/15/17 23:00 INR, PTT INR 1.01 (0.82-1.09) 11/15/17 23:00 Problem List - Problems (1) Diplopia Code(s): H53.2 - DIPLOPIA (2) Dizziness Code(s): R42 - DIZZINESS AND GIDDINESS (3) Hypothyroidism Code(s): E03.9 - HYPOTHYROIDISM, UNSPECIFIED Qualifiers: 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 Diplopia ruled out for stroke, possible CN palsy 2. Dizziness since resolved 3. Hypothyroidism 4. RBBB P: 1. Echo to assess ventricular and valve fxn 2. Holter monitor r/o arrhythmia 3. ASA 81 qd, DVT prophylaxis, neuro f/u
--- NOTE | 2017-11-18 23:23 | HOSP ---
Subjective - Review of Symptoms Events since last encounter: Was asked to see a patient who reports having non-radiating L-sided CP. Subjective: Arrived to bedside, patient is alert, awake, oriented he denies having chest pain, he reports feeling nervous and anxious about his pending test results- Echocardiagram, Holtier Monitor.Patient reports being told he would be discharged today by his PMD. Patient reports having nasal congestion and with cold symptoms. See PE Assessment 86 y/o man who presented to the ED with Diplopia r/o CVA. Plan Cardiac Enzymes, Chest Xray were ordered, however patient refused Incentive Spirometer Will have RN, FU with PCP in am regarding Echo, Holtier results Will continue to monitor overnight Other Systems: Psych: Anxious, Nervous Physical Examination Vital Signs: Vital Signs Temperature 97.5 F L 11/18/17 22:00 Pulse Rate 72 11/18/17 22:00 Respiratory Rate 19 11/18/17 22:00 Blood Pressure 144/82 11/18/17 22:00 O2 Sat by Pulse Oximetry (%) 96 11/17/17 05:00 Constitutional: Yes: Anxious Eyes: Yes: Conjunctiva Clear, EOM Intact, PERRL. No: Diplopia HENT: Yes: WNL, Atraumatic, Normocephalic Neck: Yes: WNL, Supple, Trachea Midline Cardiovascular: Yes: WNL, Regular Rate and Rhythm, S1, S2 Respiratory: Yes: WNL, Regular, CTA Bilaterally Gastrointestinal: Yes: WNL, Normal Bowel Sounds, Soft ...Rectal Exam: Yes: Deferred Renal/: Yes: WNL Breast(s): Yes: WNL Musculoskeletal: Yes: WNL Extremities: Yes: WNL Edema: No Peripheral Pulses WNL: Yes Neurological: Yes: WNL, Alert, Oriented, Cran Nerves II-XII Intact ...Motor Strength: WNL Psychiatric: Yes: WNL, Alert, Oriented, Other (Anxious) Labs: CBC, BMP 11/15/17 23:00 11/15/17 23:00
[2017-11-19] MEDS ORDERED: PT OWN MED DRAWER 7, Y5N ONE (05:40)
[2017-11-19 06:04] VITALS: TEMP 98
[2017-11-19] MEDS: LEVOTHYROXINE NA 125 MCG TABLET (FP) PO SCH (06:05)
--- NOTE | 2017-11-19 09:18 | DS ---
Physical Examination Vital Signs: Vital Signs Temperature 98 F 11/19/17 06:00 Pulse Rate 60 11/19/17 06:00 Respiratory Rate 19 11/19/17 06:00 Blood Pressure 119/57 11/19/17 06:00 O2 Sat by Pulse Oximetry (%) 97 11/19/17 02:00 Labs: CBC, BMP 11/15/17 23:00 11/15/17 23:00 Discharge Summary Reason For Visit: DIZZINESS, DISORDER OF THYROID Current Active Problems Diplopia (Acute) Diplopia (Acute) Dizziness (Acute) Hypothyroidism (Acute) Right bundle branch block (RBBB) (Acute) Thyroid disease (Acute) Hospital Course: 86M with hypothyroidism, and prostate Ca s/p seeding presents to the ED due to double vision and dizziness. He states it happened all of a sudden and his daughter called EMS. Patient also started to experience diplopia. Patient was able to walk the stairs to meet EMS per ED. Denies nausea vomiting fevers chills chest pain shortness of breath Denies urinary or GI symptoms. Per ER records son states father has not been compliant with synthroid for at least 3 days but patient states its one been 1 or 2 days. Patient states he currently feels better. Per neurology note this has happened to the patient before and per EMR patient has had multiple MRIs of Brain in the past without any significant findings. Patient is ambulating in the ED. Allergies: None Surgical History: None PMD: Dr. Dunn Neurologist: Dr. Esquivel PAST MEDICAL HISTORY: Hypothyroidism prostate Ca PAST SURGICAL HISTORY:prostate seeding, appendectomy in 1940s, hip surgery Hospital course was notable for: (1)Labs NOTED (2)Neurology consult NOTED (3)Head CT NAD (4)MRI NAD (5) HOLTER (6) ECHO NL LV (7) CXR NAD PT SYMPTOMS RESOLVED --NO FURTHER DIPLOPIA--NO OTHER NEURO COMPLAINTS PT C/O URO SYMPTOMS--CXR NAD--WILL ORDER MUCINEX AND DUONEB - Problems (1) Diplopia Assessment/Plan: -seen by neurology -now resolved -MRI brain reviewed-nad -Seen by Cardiology -Echo and holter ordered -may have been to 6th nerve palsy Code(s): H53.2 - DIPLOPIA (2) Dizziness Assessment/Plan: -resolved -cardiology consult -carotid U/S -echo and holter monitor -lyme titer pending -Lipid profile pending Code(s): R42 - DIZZINESS AND GIDDINESS (3) Thyroid disease Assessment/Plan: -due to non compliance -levothyroxine 125 mcg restarted -endocrinology consult appreciated -repeat TSH/FT4 in 2 weeks outpatient Code(s): E07.9 - DISORDER OF THYROID, UNSPECIFIED Condition: Stable - Instructions Diet, Activity, Other Instructions: Repeat TSH/FT4 on 12/02/[address] dunn to follow up on hospital testing ENT consult--follow up on polyp CARDIOLOGY FOLLOW UP WITH DR COLLINS NEUROLOGY FOLLOW UP OPHTHALMOLOGY CONSULT Referrals: [place] Dunn, FEROZ [Primary Care Provider] - Garrett Dunn MD [Staff Physician] - 1 Week Disposition: HOME - Home Medications Comprehensive Discharge Medication List: Ambulatory Orders Levothyroxine [Synthroid -] 125 mcg PO DAILY 11/16/17 Aspirin Coated [Ecotrin -] 81 mg PO DAILY tablet.ec 11/18/17 Fluticasone Prop 0.05% Nasal [Flonase -] 1 spray NS DAILY spray 11/18/17 metFORMIN HCL [Glucophage -] 500 mg PO ACBK #30 tablet 11/18/17 Guaifenesin Dm [Mucinex Dm -] 1 tablet PO BID tab.er.12h 11/19/17
[2017-11-19] MEDS ORDERED: ALBUTEROL SO4 2.5/IPRATROPIUM 0.5 INH SOL 3 ML VIAL.NEB. NEB ONE (09:25)
[2017-11-19] MEDS: ASPIRIN COATED 81 MG TABLET.EC PO SCH (09:49)
[2017-11-19] MEDS: HEPARIN NA (PORCINE) 5,000 UNITS/ML 1ML VIAL SQ SCH (09:49)
[2017-11-19] MEDS: FLUTICASONE PROP 0.05% 16 GM NASAL SPRAY NS SCH (09:49)
[2017-11-19] MEDS ORDERED: guaiFENesin/D-METHORPHAN HB 1 EACH TAB.ER.12H PO SCH (10:00)
--- NOTE | 2017-11-19 10:24 | HOL ---
Hook-up date: 2017-11-17 13:13:00 Duration: 24:00:00 Test Indications: DIZZINESS, DIPLOPIA, RBBB Medications: 35983 QRS complexes 332 Ventricular ectopics which represent <1 % of total QRS comp. 58 Supraventricular ectopics which represent <1 % of total QRS comp. * Paced QRS complexs which represent % of total QRS comp. * % of Time Classified as Noise VENTRICULAR ECTOPY 332 Isolated 0 Bigeminal Cycles 0 Couplets 0 Runs 0 Beats in Runs * Beats LONGEST at * BPM at :: -- * Beats FASTEST at * BPM at :: -- SUPRAVENTRICULAR ECTOPY 54 Isolated 2 Couplets 0 Runs 0 Beats in Runs * Beats LONGEST at * BPM at :: -- * Beats FASTEST at * BPM at :: -- HEART RATES 43 MIN at 05:10:40 2017-11-18 61 AVG 107 MAX at 09:42:11 2017-11-18 LONGEST RR 1.760 secs at 03:33:33 2017-11-18 SCANNED BY: ZULEIMA 11/19/17 The rhythm throughout the study was sinus rhythm with a minimum heart rate of 43 bpm and a maximum heart rate of 107bpm for an average heart rate of 61bpm. There was frequent premature ventricular depolarizations (PVCs) and occasional atrial premature depolarizations (APCs). There was no other significant arrhythmias recorded. Confirmed by MD JOAN, HOLLIE ([id number]) on 11/19/2017 10:23:39 AM Referred By: Paco CRUZ Overread By: HOLLIE FRANCO MD
[2017-11-19 11:00] VITALS: BP 128/59; PULSE 77
--- NOTE | 2017-11-19 11:29 | CON.PULM ---
Consult Consult Specialty:: PULM/CCM Referred by:: ALIA Reason for Consultation:: SOB - History of Present Illness Chief Complaint: Double vision History of Present Illness: 86 M, known right nasal polyp, hypothyroidism, and prostate CA. Admitted via the ER due to acute onset of double vision and dizziness. No associated nausea or vomiting. No CP or SOB. His diplopia has resolved and his workup has thus far been unrevealing. Reported developed non-radiating CP and SOB. He was noted to be anxious as he reports that he is nervous about his workup. He was ordered mucinex and BD TX. CXR: Chronic changes that are stable from his CXR in 2015 / no acute process is noted. He does have a nasal character to his voice and a sporadic dry cough. He is currently saturating 98% on RA and in NAD. - History Source History Provided By: Patient Limitations to Obtaining History: Poor Historian - Past Medical History [employer]: Yes: Dementia Pulmonary: No: Asthma, COPD, O2 Dependent, Pneumonia, Pulmonary Embolus, Sleep Apnea Musculoskeletal: Yes: Chronic low back pain - Alcohol/Substance Use Hx Alcohol Use: No - Smoking History Smoking history: Never smoked Have you smoked in the past 12 months: No Aproximately how many cigarettes per day: 0 - Social History Usual Living Arrangement: With Child ADL: Independent History of Recent Travel: No Home Medications - Allergies Allergies/Adverse Reactions: Allergies Allergy/AdvReac Type Severity Reaction Status Date / Time No Known Allergies Allergy Verified 11/15/17 21:30 - Home Medications Home Medications: Ambulatory Orders Levothyroxine [Synthroid -] 125 mcg PO DAILY 11/16/17 Aspirin Coated [Ecotrin -] 81 mg PO DAILY tablet.ec 11/18/17 Fluticasone Prop 0.05% Nasal [Flonase -] 1 spray NS DAILY spray 11/18/17 metFORMIN HCL [Glucophage -] 500 mg PO ACBK #30 tablet 11/18/17 Guaifenesin Dm [Mucinex Dm -] 1 tablet PO BID tab.er.12h 11/19/17 Review of Systems - Review of Systems Constitutional: denies: Chills, Diaphoresis, Fever, Lethargy, Malaise, Night Sweats, Weakness Eyes: reports: Double Vision HENT: reports: No Symptoms Neck: reports: No Symptoms Cardiovascular: reports: Chest Pain, Shortness of Breath. denies: Edema, Palpitations Respiratory: reports: Cough, SOB. denies: Hemoptysis, Snoring, Wheezing Genitourinary: reports: No Symptoms Breasts: reports: No Symptoms Reported Musculoskeletal: reports: No Symptoms Integumentary: reports: No Symptoms Neurological: reports: Other (diplopia) Endocrine: reports: No Symptoms Hematology/Lymphatic: reports: No Symptoms Psychiatric: reports: No Symptoms Physical Exam Vital Sings: Vital Signs Temperature 98 F 11/19/17 10:00 Pulse Rate 77 11/19/17 10:00 Respiratory Rate 19 11/19/17 10:00 Blood Pressure 128/59 11/19/17 10:00 O2 Sat by Pulse Oximetry (%) 97 11/19/17 10:00 Constitutional: Yes: No Distress, Anxious Eyes: Yes: Conjunctiva Clear, EOM Intact HENT: Yes: Atraumatic, Normocephalic Neck: Yes: Supple, Trachea Midline Cardiovascular: Yes: Regular Rate and Rhythm Respiratory: Yes: CTA Bilaterally, Cough. No: Accessory Muscle Use, On Nasal O2 , Rales, Rhonchi, SOB, Stridor, Tachypnea, Wheezes ...Inspection: Yes: WNL ...Clubbing: No Gastrointestinal: Yes: Normal Bowel Sounds, Soft Renal/: Yes: WNL Musculoskeletal: Yes: WNL Extremities: Yes: WNL Edema: No Peripheral Pulses WNL: Yes Integumentary: Yes: WNL Neurological: Yes: WNL, Alert, Oriented ...Motor Strength: WNL Psychiatric: Yes: Alert, Oriented, Other (anxious ) Labs: CBC, BMP 11/15/17 23:00 11/15/17 23:00 Imaging - Results Chest X-ray: Report Reviewed, Image Reviewed Problem List - Problems (1) Nasal polyp Code(s): J33.9 - NASAL POLYP, UNSPECIFIED (2) Anxiety Code(s): F41.9 - ANXIETY DISORDER, UNSPECIFIED (3) Diplopia Code(s): H53.2 - DIPLOPIA (4) Dizziness Code(s): R42 - DIZZINESS AND GIDDINESS (5) Hypothyroidism Code(s): E03.9 - HYPOTHYROIDISM, UNSPECIFIED Qualifiers: 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 His CXR reveals no acute process and his Oxygen saturation is 98% on RA. He does have a right nasal polyp and nasal congestion. He can have PFTs is symptoms return after discharge Continuation of his nasal steroid sprays BD TX as be continued if the patient finds them helpful No smoking There is no Pulmonary contraindication for D/C Thank you Dr Adams
--- NOTE | 2017-11-19 11:51 | PN ---
Progress Note, Physician Chief Complaint: Not in distress History of Present Illness: Patient was seen and examined. Awake and alert. Patient denies chest pain, shortness of breath or palpitations - Current Medication List Current Medications: Active Medications Albuterol/Ipratropium (Duoneb -) 1 amp NEB RQID [facility] Last Admin: 11/19/17 09:50 Dose: 1 amp Aspirin (Ecotrin -) 81 mg PO DAILY [facility] Last Admin: 11/19/17 09:49 Dose: Not Given Fluticasone Propionate (Flonase -) 1 spray NS DAILY [facility] Last Admin: 11/19/17 09:49 Dose: 1 spray Guaifenesin (Mucinex Dm -) 1 tablet PO BID [facility] Last Admin: 11/19/17 10:24 Dose: 1 tablet Heparin Sodium (Porcine) (Heparin -) 5,000 unit SQ BID [facility] Last Admin: 11/19/17 09:49 Dose: Not Given Levothyroxine Sodium (Synthroid -) 125 mcg PO DAILY@0700 [facility] Last Admin: 11/19/17 06:05 Dose: 125 mcg - Objective Vital Signs: Vital Signs Temperature 98 F 11/19/17 10:00 Pulse Rate 77 11/19/17 10:00 Respiratory Rate 19 11/19/17 10:00 Blood Pressure 128/59 11/19/17 10:00 O2 Sat by Pulse Oximetry (%) 97 11/19/17 10:00 HENT: Yes: Atraumatic Neck: Yes: Supple Cardiovascular: Yes: Regular Rate and Rhythm, S1, S2 Respiratory: Yes: CTA Bilaterally Gastrointestinal: Yes: Normal Bowel Sounds, Soft. 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 Diplopia ruled out for stroke 2. Dizziness 3. Hypothyroidism 4. RBBB PLAN: 1. Echocardiography reviewed 2. Holter monitor reviewed 3. ASA 81 qd and DVT prophylaxis Discharge planning Louie Zambrano MD
[2017-11-19] MEDS ORDERED: ALBUTEROL SO4 2.5/IPRATROPIUM 0.5 INH SOL 3 ML VIAL.NEB. NEB SCH (12:00)
== END 2017-11-19 14:20 | disposition home or self-care (01) ==
LOC: JER 20:48 → JERBED 11-16 00:58 → UNDOADMOB 11-16 01:05 → JERBED 11-16 01:05 → J7W 11-16 04:37
PROVIDERS: ADMIT Internal Medicine; ATTEND Family Medicine
PROC: 3E0F7GC Introduction of Other Therapeutic Substance into Respiratory Tract, Via Natural or Artificial Opening (ICD-10-PCS; principal; 2017-11-16)
DX: H53.2 Diplopia (principal); R42 Dizziness and giddiness; E03.9 Hypothyroidism, unspecified; N40.0 Benign prostatic hyperplasia without lower urinary tract symptoms; Z91.14 Patient's other noncompliance with medication regimen; I25.10 Atherosclerotic heart disease of native coronary artery without angina pectoris; I44.0 Atrioventricular block, first degree; I45.10 Unspecified right bundle-branch block; R00.1 Bradycardia, unspecified; R94.31 Abnormal electrocardiogram [ECG] [EKG]; M19.90 Unspecified osteoarthritis, unspecified site; F03.90 Unspecified dementia, unspecified severity, without behavioral disturbance, psychotic disturbance, mood disturbance, and anxiety; M54.5 Low back pain; G89.29 Other chronic pain; J33.9 Nasal polyp, unspecified; F41.9 Anxiety disorder, unspecified; Z85.46 Personal history of malignant neoplasm of prostate
CPT/HCPCS: 36415; 70450-TC; 70551-TC; 71045-TC-FY; 80053; 80061; 81003; 82607; 82962; 83036; 83721; 84439; 84443; 84479; 84481; 84484; 85025; 85610; 85651; 85730; 86618; 93005; 93010; 93225; 93226; 93306-TC; 93880-TC; 94640; 97116-GP; 97161-GP; 99283-25; G0378; J1644; J7030; J7620

== ENCOUNTER 2018-03-30 22:39 | Emergency (ER) | payer OTHER ==
[2018-03-30 23:14] VITALS: BP 169/88; PULSE 76; TEMP 97.8; BMI 29.0
== END 2018-03-30 23:19 | disposition left against medical advice (07) ==
LOC: JER 22:39
DX: Z53.21 Procedure and treatment not carried out due to patient leaving prior to being seen by health care provider (principal)
CPT/HCPCS: 99281-25

== ENCOUNTER 2019-04-14 09:07 | Emergency (ER) | payer OTHER ==
[2019-04-14 09:16] VITALS: BP 153/93; PULSE 83; TEMP 98.2; BMI 24.3
--- NOTE | 2019-04-14 10:16 | PDOC ---
History of Present Illness - General Chief Complaint: Injury Stated Complaint: FALL Time Seen by Provider: 04/14/19 09:38 - History of Present Illness Initial Comments: 04/14/19 10:08 CHIEF COMPLAINT: left hip pain HISTORY OF PRESENT ILLNESS: 88 yo M with hx of HTN presents to [facility] with pain to L hip s/p fall yesterday morning. Patient states he missed a step and fell, broke the fall with his hands and landed on his left side. He complains of pain to his left hip today. Patient denies any LOC, dizziness, SOB, chest pain, or head injury. No recent travel or sick contacts. PAST MEDICAL HISTORY: HTN FAMILY HISTORY: Denies SOCIAL HISTORY: Denies tobacco, alcohol, illicit drug use. SURGICAL HISTORY: Denies ALLERGIES: No known drug allergies REVIEW OF SYSTEMS General/Constitutional: Denies fever or chills. Denies weakness, weight change. HEENT: Denies change in vision. Denies ear pain or discharge. Denies sore throat. Cardiovascular: Denies chest pain or shortness of breath. Respiratory: Denies cough, wheezing, or hemoptysis. Gastrointestinal: Denies nausea, vomiting, diarrhea or constipation. Denies rectal bleeding. Genitourinary: Denies dysuria, frequency, or change in urination. Musculoskeletal: L hip pain. Denies joint or muscle swelling or pain. Denies neck or back pain. Skin and breasts: Denies rash or easy bruising. Neurologic: Denies headache, vertigo, loss of consciousness, or loss of sensation. Psychiatric: Denies depression or anxiety. Endocrine: Denies increased thirst. Denies abnormal weight change. Hematologic/Lymphatic: Denies anemia, easy bleeding, or history of blood clots. Allergic/Immunologic: Denies hives or skin allergy. Denies latex allergy. PHYSICAL EXAM General Appearance: Well-appearing, appropriately dressed. No apparent distress , no intoxication. HEENT: EOMI, PERRLA, normal ENT inspection, normal voice, TMs normal, pharynx normal. No conjunctival pallor. No photophobia, scleral icterus. Neck: Supple. Trachea midline. No tenderness, rigidity, carotid bruit, stridor , lymphadenopathy, or thyromegaly. Respiratory/Chest: Lungs CTAB. No shortness of breath, chest tenderness, respiratory distress, accessory muscle use. No crackles, rales, rhonchi, stridor , wheezing, dullness Cardiovascular: RRR. S1, S2. No JVD, murmur, bradycardia, tachycardia. Vascular Pulses: Dorsalis-Pedis (R): 2+, Dorsalis-Pedis (L): 2+ Gastrointestinal/Abdominal: Normal bowel sounds. Abdomen soft, non-distended. No tenderness or rebound tenderness. No organomegaly, pulsatile mass, guarding , hernia, hepatomegaly, splenomegaly. Lymphatic: No adenopathy, tenderness. Musculoskeletal/Extremities: Normal inspection. FROM of all extremities, normal capillary refill. Pelvis Stable. No CVA tenderness. No tenderness to extremities, pedal edema, swelling, erythema or deformity. Integumentary: Appropriate color, dry, warm. No cyanosis, erythema, jaundice or rash Neurologic: collar baster jumpbasting II-XII intact. Fully oriented, alert. Appropriate mood/affect. Motor strength 5/5. No appreciable EOM palsy, facial droop or sensory deficit. A&Ox3, follow commands, respond appropriately CN2-12: conjugate gaze, pupil round, equal and reactive to light. Visual field full to confrontation. EOMI without nystagmus, pursuit is smooth without saccade. Facial sensation and muscle activation intact bilaterally. Hearing intact bilaterally. Palate elevate symmetrically. Shoulder shrug and neck turn full strength. Tongue protrude midline. Motor: UE and LE strength 5/5 throughout bilaterally. Muscle tone and bulk normal. Sensory: pin prick & temp : BUE & BLE intact and equal bilaterally Vibration & propioception: intact bilaterally at 1st MCP and MTP joints. no sensory level noted on trunk Cerebellar: Rapid-alternating movement with regular rhythm without bradykinesia. Nxtncg-ai-vvft and yrew-fa-hwke intact bilaterally without dysmetria or overshoot. Gait narrow based. No shuffling. Full hip flexion and knee flexion. Negative Romberg No involuntary movement noted. No pronator drift. No clonus. Past History - Past Medical History Allergies/Adverse Reactions: Allergies Allergy/AdvReac Type Severity Reaction Status Date / Time No Known Allergies Allergy Verified 09/09/18 10:09 Home Medications: Ambulatory Orders Levothyroxine [Synthroid -] 125 mcg PO DAILY 11/16/17 Aspirin Coated [Ecotrin -] 81 mg PO DAILY tablet.ec 11/18/17 Fluticasone Prop 0.05% Nasal [Flonase -] 1 spray NS DAILY spray 11/18/17 metFORMIN HCL [Glucophage -] 500 mg PO ACBK #30 tablet 11/18/17 Guaifenesin Dm [Mucinex Dm -] 1 tablet PO BID tab.er.12h 11/19/17 Acetaminophen [Tylenol -] 500 mg PO Q6H PRN #100 tablet 04/14/19 Cancer: Yes (PROSTATE) COPD: No Thyroid Disease: Yes - Surgical History Appendectomy: Yes Orthopedic Surgery: Yes (bilateral hip replacement) - Immunization History Immunization Up to Date: Yes - Psycho Social/Smoking Cessation Hx Smoking Status: No Smoking History: Never smoked Have you smoked in the past 12 months: No Number of Cigarettes Smoked Daily: 0 Information on smoking cessation initiated: No Hx Alcohol Use: No Drug/Substance Use Hx: No Substance Use Type: None Hx Substance Use Treatment: No *Physical Exam - Vital Signs Last Vital Signs Temp Pulse Resp BP Pulse Ox 98.2 F 83 16 153/93 96 04/14/19 09:11 04/14/19 09:11 04/14/19 09:11 04/14/19 09:11 04/14/19 09:11 ED Treatment Course - RADIOLOGY Radiology Studies Ordered: Category Date Time Status HIP & PELVIS-LEFT [RAD] Stat Radiology 04/14/19 09:20 Ordered HIP & PELVIS-RIGHT [RAD] Stat Radiology 04/14/19 09:20 Ordered Medical Decision Making - Medical Decision Making 04/14/19 10:16 88 yo M with hx of HTN presents to fast track with pain to L hip s/p fall yesterday morning. -hip x-ray -ekg ekg unchanged from prior of last year. patient denies any cardiac symptoms. 04/14/19 10:33 x-ray negative for fracutre or dislocation. patient ambulatory with cane. pain control, patient given strict return precautions. Discharge - Discharge Information Problems reviewed: Yes Clinical Impression/Diagnosis: Fall on steps Hip pain Qualifiers: Laterality: left Qualified Code(s): M25.552 - Pain in left hip Condition: Stable Disposition: HOME - Admission No - Additional Discharge Information Prescriptions: Acetaminophen [Tylenol -] 500 mg PO Q6H PRN #100 tablet PRN Reason: Pain - Follow up/Referral Referrals: Garrett Dunn MD [Primary Care Provider] - - Patient Discharge Instructions Patient Printed Discharge Instructions: How to Prevent Falls, DI for Hip Pain Additional Instructions: Please take medication as prescribed. Follow up with your primary care doctor within the next week. If you develop ANY dizziness, lightheadedness, nausea, change in vision, weakness, difficulty speaking, difficulty walking, or any new or worsening symptoms, please return to the ER immediately. - Post Discharge Activity
--- NOTE | 2019-04-14 12:19 | EKG ---
Test Reason : Blood Pressure : / mmHG Vent. Rate : 070 BPM Atrial Rate : 070 BPM P-R Int : 200 ms QRS Dur : 140 ms QT Int : 378 ms P-R-T Axes : 067 090 053 degrees QTc Int : 408 ms POOR DATA QUALITY, INTERPRETATION MAY BE ADVERSELY AFFECTED NORMAL SINUS RHYTHM RIGHT BUNDLE BRANCH BLOCK ABNORMAL ECG WHEN COMPARED WITH ECG OF 15-NOV-2017 22:52, NO SIGNIFICANT CHANGE WAS FOUND Confirmed by Edgar Henry ([id number]) on 04/14/2019 12:19:15 PM Referred By: Confirmed By:Edgar Henry
== END 2019-04-14 10:50 | disposition home or self-care (01) ==
LOC: JERFT 09:07
DX: S79.812A Other specified injuries of left hip, initial encounter (principal); M25.512 Pain in left shoulder; W10.8XXA Fall (on) (from) other stairs and steps, initial encounter; Y93.89 Activity, other specified; Y92.018 Other place in single-family (private) house as the place of occurrence of the external cause; Y99.8 Other external cause status; I10 Essential (primary) hypertension; E07.9 Disorder of thyroid, unspecified; Z85.46 Personal history of malignant neoplasm of prostate; Z96.643 Presence of artificial hip joint, bilateral; Z99.89 Dependence on other enabling machines and devices; Z79.82 Long term (current) use of aspirin
CPT/HCPCS: 73523-TC-FY; 93005; 93010; 99282-25

== ENCOUNTER 2020-02-25 04:26 | Day surgery (SDC) | payer OTHER ==
[2020-02-25] MEDS ORDERED: LIDOCAINE HCL/PF 2% SDV 5ML VIAL ONE (07:40)
[2020-02-25] MEDS ORDERED: PROPOFOL 20 ML ONE (07:40)
[2020-02-25] MEDS ORDERED: ceFAZolin SODIUM 1 GM VIAL ONE (07:46)
[2020-02-25] MEDS ORDERED: mitoMYcin 40 MG/50 ML DISP.SYRIN (FOR OR USE) IC ONE (08:00)
[2020-02-25] MEDS ORDERED: ceFAZolin SODIUM 1 GM VIAL IVPB ONE (08:05)
[2020-02-25] MEDS ORDERED: oxyCODONE HCL 5 MG TABLET PO PRN (08:34)
--- NOTE | 2020-02-25 08:38 | OP ---
Operative Note - Note: Operative Date: 02/25/20 Pre-Operative Diagnosis: bladder tumor Operation: TURBT Post-Operative Diagnosis: Same as Pre-op Surgeon: Gabe Choi Anesthesia: Spinal Specimens Removed: tumor
[2020-02-25] MEDS ORDERED: ONDANSETRON 4 MG/2 ML VIAL IVPUSH PRN (08:45)
[2020-02-25] MEDS ORDERED: DEXTROSE 5%-0.45% SALINE 1,000 ML IV SCH (08:45)
[2020-02-25] MEDS ORDERED: LACTATED RINGERS SOLUTION 1,000 ML IV SCH (08:45)
[2020-02-25] MEDS ORDERED: IBUPROFEN 800 MG/8 ML IJ IVPB PRN (08:45)
--- NOTE | 2020-02-25 09:45 | OP ---
DATE OF OPERATION: 02/25/2020 PREOPERATIVE DIAGNOSIS: Bladder tumor. POSTOPERATIVE DIAGNOSIS: Bladder tumor. PROCEDURE: Transurethral resection of bladder tumor. SURGEON: Gabe Choi MD INDICATION: Patient is an 89-year-old male noted to have a bladder tumor on cystoscopy in the office. He is taken to the OR for TURBT. DESCRIPTION OF PROCEDURE: Patient taken to the OR, was placed supine on the table. After cardiac monitoring administered and general anesthesia was established, he was prepped and draped in dorsal supine position. The 26-sheath resectoscope with the visual obturator was inserted into the urethra without difficulty. Anterior urethra was normal. 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 The prostate was visibly normal. Bladder was then visualized. There were 3 bladder tumors noted in total, 1 on the posterior wall, 1 on the anterior wall and these were small papillary tumors, and then there was a 3rd tumor encompassing the right ureteral orifice and this was sessile appearing and much more aggressive looking. The 2 papillary tumors were superficial, were resected and then base of those fulgurated. Then, attention was turned to the more ominous-looking tumor encompassing the right ureteral orifice. This was resected in its entirety down to what appeared to be muscle fibers, and then the base of this was fulgurated. There was no fulguration carried out around the ureteral orifice on the right side to minimize a chance of scarring, but the ureteral orifice was involved in the area of resection in an effort to completely eradicate the tumor. All the tumor chips were removed with the i2i Logic evacuator and sent to Pathology for analysis. Repeat cystoscopy revealed no evidence of residual tumor, no evidence of any active bleeding. There appeared to be efflux coming from the right ureteral orifice as well as left ureteral orifice. The resectoscope was then removed, and a 20-Faroese Perez was then placed to straight drainage; 40 mg of mitomycin C was instilled into the bladder for a 1-hour dwell time in the recovery room and then unclamped. Patient was awoken from anesthesia and transferred to the recovery room in stable condition. There were no complications. Estimated blood loss was minimal. Gala [id number]
[2020-02-25 14:19] VITALS: BP 141/71; PULSE 62; TEMP 98
--- NOTE | 2020-03-08 11:27 | PATH ---
Surgical Pathology Report Patient Name: SELMA ALONZO [place]. Rec. #: [id number] /Age/Gender: 1930 (Age: 89) / M Account: [id number] Location: [facility] Taken: 02/25/2020 Received: 02/25/2020 Reported: 02/26/2020 Physicians: Gabe Choi M.D. 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 LYMPHOVASCULAR INVASION IDENTIFIED. NO MUSCULARIS PROPRIA IDENTIFIED. NO FLAT CARCINOMA IN SITU (CIS) IDENTIFIED. Comment: Case seen in intradepartmental review with consensus on diagnosis. Electronically Signed Rochelle Glass M.D. Addendum Reported: 02/26/2020 Addendum Diagnosis Case discussed with Dr. Choi, 02/26/20. Rochelle Glass M.D. Gross Description Received in formalin labeled "bladder chips," is a 2.3 x 1.2 x 0.3 cm aggregate of sweeney-pink rubbery tissue fragments. The formalin is filtered and the specimen is entirely submitted in one cassette. /02/25/2020 saudi/02/25/2020
== END 2020-02-25 13:45 | disposition home or self-care (01) ==
LOC: JASU-SURG 04:26
PROVIDERS: ATTEND Urology
PROC: 3E0K805 Introduction of Other Antineoplastic into Genitourinary Tract, Via Natural or Artificial Opening Endoscopic (ICD-10-PCS; 2020-02-25)
PROC: 0TBB8ZX Excision of Bladder, Via Natural or Artificial Opening Endoscopic, Diagnostic (ICD-10-PCS; principal; 2020-02-25 07:30)
DX: C67.8 Malignant neoplasm of overlapping sites of bladder (principal)
CPT/HCPCS: 88307-TC; 94760

== ENCOUNTER 2020-02-28 21:17 | Emergency (ER) | payer OTHER ==
[2020-02-28 21:28] VITALS: BP 127/78; PULSE 77; TEMP 98.6; BMI 24.7
--- NOTE | 2020-02-28 21:39 | PDOC ---
History of Present Illness - General Chief Complaint: Urinary Catheter Problem Stated Complaint: SENT BY DOCTOR Time Seen by Provider: 02/28/20 21:38 History Source: Patient, EMS Exam Limitations: No Limitations - History of Present Illness Initial Comments: 02/28/20 21:38 Henry Galindo is an [place]-speaking 89M with PMH hypothyroidism, prostate CA s/p seeding, and recent TURBT on 02/[address] Choi presenting with decreased Perez output and dark urine. Daughter at bedside to help translate [place]. Patient is extraordinarily hard of hearing. Patient complains of sensation of burning and feeling as if he has to urinate but cannot. Has had normal urine output into the leg bags each day, urine of normal color yesterday. Today reports increasingly dark/reddish urine and decreased output despite adequate oral intake. Denies abdominal pain, fever, chills, nausea, vomiting, diarrhea, chest pain, SOB, KOWALSKI, dizziness. Per daughter, Dr. Choi contacted regarding dark urine, told patient to go to ED for a Perez irrigation. Contacted Dr. Choi for clarification, reports that patient likely has clots in the urine after procedure and this is obstructing the Perez, can send urine culture but not necessary, does not need Perez replacement. Would like manual irrigation of the bladder and if no complications, can be discharged home with urology f/u. Past History - Medical History Allergies/Adverse Reactions: Allergies Allergy/AdvReac Type Severity Reaction Status Date / Time No Known Allergies Allergy Verified 02/25/20 06:56 Home Medications: Ambulatory Orders Levothyroxine [Synthroid -] 125 mcg PO DAILY 11/16/17 Losartan Potassium 25 mg PO DAILY 02/24/20 Anemia: No Asthma: No Cancer: Yes (PROSTATE) Cardiac Disorders: No CVA: No COPD: No CHF: No Dementia: No Diabetes: No GI Disorders: No Disorders: No HTN: Yes Hypercholesterolemia: No Liver Disease: No Seizures: No Thyroid Disease: Yes - Surgical History Abdominal Surgery: Yes (HERNIA REPAIR) Appendectomy: Yes Cardiac Surgery: No Lung Surgery: No Orthopedic Surgery: Yes (bilateral hip replacement) - Immunization History Immunization Up to Date: Yes - Psycho-Social/Smoking History Smoking Status: No Smoking History: Never smoked Have you smoked in the past 12 months: No Number of Cigarettes Smoked Daily: 0 - Substance Abuse Hx (Audit-C & DAST Scrn) How often the patient has a drink containing alcohol: Never Score: In Men: 4 or > Positive; In Women: 3 or > Positive: 0 Screen Result (Pos requires Nsg. Audit-10AR): Negative In the last yr the pt used illegal drug/Rx for NonMed reason: No Score: Yes response is considered Positive: 0 Screen Result (Positive result requires Nsg. DAST-10): Negative Review of Systems - Review of Systems Able to Perform ROS?: Yes Constitutional: No: Symptoms Reported HEENTM: No: Symptoms Reported Respiratory: No: Symptoms reported Cardiac (ROS): No: Symptoms Reported ABD/GI: No: Symptoms Reported, Diarrhea, Nausea, Poor Appetite, Poor Fluid Intake, Vomiting : Yes: Burning, Dysuria, Hematuria. No: Discharge Musculoskeletal: No: Symptoms Reported Integumentary: No: Symptoms Reported Neurological: No: Symptoms reported Endocrine: No: Symptoms Reported Hematologic/Lymphatic: No: Symptoms Reported All Other Systems: Reviewed and Negative *Physical Exam - Vital Signs Last Vital Signs Temp Pulse Resp BP Pulse Ox 98.6 F 77 19 127/78 96 02/28/20 21:22 02/28/20 21:22 02/28/20 21:22 02/28/20 21:22 02/28/20 21:22 - Physical Exam General Appearance: Yes: Nourished, Appropriately Dressed, Other (resting comfortably in bed). No: Apparent Distress HEENT: positive: EOMI, LETICIA, Normal Voice, Symmetrical, Pharynx Normal. negative: Scleral Icterus (R), Scleral Icterus (L), Pharyngeal Erythema, Tonsillar Exudate, Tonsillar Erythema Neck: positive: Trachea midline, Normal Thyroid. negative: Tender, Rigid, Supple, Lymphadenopathy (R), Lymphadenopathy (L), Tender lateral, Tender midline Respiratory/Chest: positive: Lungs Clear, Normal Breath Sounds. negative: Chest Tender, Respiratory Distress, Accessory Muscle Use, Crackles, Rales, Rhonchi, Stridor, Wheezing Cardiovascular: positive: Regular Rhythm, Regular Rate. negative: Murmur Gastrointestinal/Abdominal: positive: Normal Bowel Sounds, Flat, Soft, Protuberent. negative: Tender, Organomegaly, Pulsatile Mass, Guarding, Rebound, Hernia Male Genitalia: positive: normal genitalia, hematuria, other (Perez in place to side bag with darker urine ~ 200cc). negative: discharge, testicular tenderness, testicular mass, epididymus tender, inguinal hernia, hernia Musculoskeletal: positive: Normal Inspection. negative: CVA Tenderness, Decreased Range of Motion, Vertebral Tenderness Extremity: positive: Normal Capillary Refill, Normal Inspection, Normal Range of Motion, Pelvis Stable. negative: Tender, Pedal Edema, Swelling, Calf Tenderness Integumentary: positive: Normal Color, Dry, Warm Neurologic: positive: Fully Oriented, Alert, Normal Mood/Affect, Normal Response Medical Decision Making - Medical Decision Making 02/29/20 00:[address] Choi for Perez catheter/bladder irrigation, does not need UA or Perez change, if not obstructed can be discharged home. Patient in NAD with stable VS, has dark urine in bag with output in the 2 hours while in ED, not obstructed, non-tender abdomen, no evidence of urinary retention despite Perez. Bladder irrigated with 500cc sterile NS via syringe through Perez, some mild streaks of tissue and clear light pink urine in irrigant, no active bleeding or large clots noted. Syringe flushed and withdrew saline smoothly, no turbulent flow, any clots pre sent obstructing Perez tip likely dislodged. Patient feeling well after procedure, in NAD, no abdominal pain. Discussed return precautions and expected hematuria after TURBT. Stable for d/c back home with urology f/u. Discharge - Discharge Information Problems reviewed: Yes Clinical Impression/Diagnosis: Problem with urinary catheter Hematuria Qualifiers: Hematuria type: gross Qualified Code(s): R31.0 - Gross hematuria Condition: Improved Disposition: HOME - Admission No - Follow up/Referral Referrals: Gabe Choi MD [Staff Physician] - - Patient Discharge Instructions Patient Printed Discharge Instructions: How to Care for Your Perez Catheter -- Male Additional Instructions: Today Henry was evaluated for a problem with his Perez catheter. Per Dr. Choi, we have irrigated the inside of his bladder to clear up any clots in the urine that may be obstructing his Perez. As discussed, bleeding in the bladder is a common occurrence after any bladder surgery, and will likely continue over the next few days. This is normal. As long as the urine is emptying into the bag, there is no problem. Henry needs to follow-up with Dr. Choi as scheduled. If he begins to have darker urine, decreased urine output, pain with urination, abdominal pain, fever, or any other new or concerning symptoms, please return to the emergency room. - Post Discharge Activity
--- NOTE | 2020-02-29 00:34 | PDOC ---
Documentation entered by Bhavik Burrows SCRIBE, acting as scribe for Annalise Choe MD. Annalise Choe MD: This documentation has been prepared by the scribe, Bhavik Burrows SCRIBE, under my direction and personally reviewed by me in its entirety. I confirm that the documentation accurately reflects all work, treatment, procedures, and medical decision making performed by me. Attending Attestation - Resident Resident Name: SangTai - ED Attending Attestation I have performed the following: I have examined & evaluated the patient, The case was reviewed & discussed with the resident, I agree w/resident's findings & plan, Exceptions are as noted - HPI HPI: 02/29/20 00:25 The patient is an 89 year old male with a significant past medical history of hypothyroidism, prostate Ca s/p seeding, and TURBT on 02/[address] Villagran who presents to the emergency department for evaluation of decreased Rodríguez output and dark urine that began today. The patient reports associated burning and hesitancy that began today. He endorses normal oral intake. As per daughter at bedside, Dr. Choi sent the patient to ED for a Rodríguez irrigation when he was informed of the dark urine output today. The patient denies chest/abdominal/back pain, cough, and shortness of breath. Denies fever, chills, nausea, vomiting, and/or any GI symptoms. Denies any other symptoms. Allergies: None Surgical History: None PMD: Dr. Dunn Neurologist: Dr. Esquivel - Physicial Exam PE: 02/28/20 22:08 GENERAL: Awake, alert, and fully oriented, in no acute distress HEAD: No signs of trauma EYES: PERRLA, EOMI, sclera anicteric, conjunctiva clear ENT: Auricles normal inspection, hearing grossly normal, nares patent, oropharynx clear without exudates. Moist mucosa NECK: Normal ROM, supple, no lymphadenopathy, JVD, or masses LUNGS: Breath sounds equal, clear to auscultation bilaterally. No wheezes, and no crackles HEART: Regular rate and rhythm, normal S1 and S2, no murmurs, rubs or gallops ABDOMEN: Soft, nontender, normoactive bowel sounds. No guarding, no rebound. No masses EXTREMITIES: Normal range of motion, no edema. No clubbing or cyanosis. No cords, erythema, or tenderness NEUROLOGICAL: Cranial nerves II through XII grossly intact. Normal speech, normal gait SKIN: Warm, Dry, normal turgor, no rashes or lesions noted. Normal rodríguez catheter. - Medical Decision Making 03/11/20 04:25 Pt looks great after the rodríguez cath flush; afebrile; not dizzy; no pain in abdomen or flank and pt is ambulating without difficulty. He will follow with his PMD. Discharge - Discharge Information Problems reviewed: Yes Clinical Impression/Diagnosis: Problem with urinary catheter Hematuria Qualifiers: Hematuria type: gross Qualified Code(s): R31.0 - Gross hematuria Condition: Improved Disposition: HOME - Follow up/Referral Referrals: Gabe Choi MD [Staff Physician] - - Patient Discharge Instructions Patient Printed Discharge Instructions: How to Care for Your Rodríguez Catheter -- Male Additional Instructions: Today Henry was evaluated for a problem with his Rodríguez catheter. Per Dr. Choi, we have irrigated the inside of his bladder to clear up any clots in the urine that may be obstructing his Rodríguez. As discussed, bleeding in the bladder is a common occurrence after any bladder surgery, and will likely continue over the next few days. This is normal. As long as the urine is emptying into the bag, there is no problem. Henry needs to follow-up with Dr. Choi as scheduled. If he begins to have darker urine, decreased urine output, pain with urination, abdominal pain, fever, or any other new or concerning symptoms, please return to the emergency room. - Post Discharge Activity
== END 2020-02-29 00:22 | disposition home or self-care (01) ==
LOC: JER 21:17
DX: T83.098A Other mechanical complication of other urinary catheter, initial encounter (principal); R31.0 Gross hematuria
CPT/HCPCS: 99283-25

== ENCOUNTER 2020-07-04 04:59 | Day surgery (SDC) | payer OTHER ==
[2020-06-27 11:45] VITALS: BMI 25.2
[2020-07-04] MEDS ORDERED: PROPOFOL 20 ML ONE (07:26)
[2020-07-04] MEDS ORDERED: SUCCINYLCHOLINE CHLORIDE 200 MG/10 ML SYRINGE ONE (07:27)
[2020-07-04] MEDS ORDERED: MIDAZOLAM HCL 2 MG/2 ML SINGLE DOSE VIAL ONE ×2 (07:27→10:04)
[2020-07-04] MEDS ORDERED: ceFAZolin 2 GRAM PREMIX BAG IVPB ONE (08:00)
[2020-07-04] MEDS ORDERED: oxyCODONE HCL 5 MG TABLET PO PRN ×2 (08:35→10:32)
[2020-07-04] MEDS ORDERED: DEXTROSE 5%-0.45% SALINE 1,000 ML IV SCH (08:45)
[2020-07-04] MEDS ORDERED: SEVOFLURANE 250 ML BTL ONE (09:07)
[2020-07-04] MEDS ORDERED: ceFAZolin SODIUM 1 GM VIAL ONE (10:00)
[2020-07-04] MEDS ORDERED: ONDANSETRON 4 MG/2 ML VIAL ONE (10:00)
[2020-07-04] MEDS ORDERED: LIDOCAINE HCL/PF 2% SDV 5ML VIAL ONE (10:00)
[2020-07-04] MEDS ORDERED: ONDANSETRON 4 MG/2 ML VIAL IVPUSH PRN (10:32)
[2020-07-04] MEDS ORDERED: LACTATED RINGERS SOLUTION 1,000 ML IV SCH (10:45)
[2020-07-04 13:43] VITALS: BP 143/80; PULSE 66; TEMP 97.7
== END 2020-07-04 12:50 | disposition home or self-care (01) ==
LOC: JASU-SURG 04:59
PROVIDERS: ATTEND Urology
PROC: 0T5B8ZZ Destruction of Bladder, Via Natural or Artificial Opening Endoscopic (ICD-10-PCS; principal; 2020-07-04 07:30)
DX: C67.8 Malignant neoplasm of overlapping sites of bladder (principal)
CPT/HCPCS: 88307-TC; 94760

== ENCOUNTER 2021-10-20 23:40 | Emergency (ER) | payer OTHER ==
[2021-10-20 23:57] VITALS: BMI 24.6
[2021-10-21] MEDS ORDERED: ACETAMINOPHEN 325 MG TABLET (FP) PO ONE (00:23)
[2021-10-21] MEDS ORDERED: ACETAMINOPHEN 325 MG TABLET (FP) ONE (00:43)
[2021-10-21] MEDS ORDERED: IBUPROFEN 600 MG TABLET (FP) PO ONE ×2 (01:28→01:35)
[2021-10-21 01:41] VITALS: BP 169/102; PULSE 64
== END 2021-10-21 01:46 | disposition home or self-care (01) ==
LOC: JER 23:40
DX: M25.431 Effusion, right wrist (principal)
CPT/HCPCS: 73110-TC-RT-FY; 73130-TC-RT-FY; 99283-25